=== PATIENT | male | born 1960 | race Caucasian/White ===

== ENCOUNTER 2016-09-15 13:51 | Emergency (ER) | payer BC ==
[2016-09-15] MEDS ORDERED: Ketorolac 60 MG/2 ML SDV IM ONE (13:52)
== END 2016-09-15 14:02 | disposition left against medical advice (07) ==
LOC: MW.ED 13:51
DX: Z53.21 Procedure and treatment not carried out due to patient leaving prior to being seen by health care provider (principal)
CPT/HCPCS: 96372; J1885

== ENCOUNTER 2016-09-15 21:49 | Emergency (ER) | payer BC ==
[2016-09-15] MEDS ORDERED: Alum Hydrox/Mag Hydrox/Simeth 15 ML, Lidocaine 2% 5 ML PO ONE ×2 (21:50)
== END 2016-09-15 22:01 | disposition home or self-care (01) ==
LOC: MW.ED 21:49
DX: Z53.21 Procedure and treatment not carried out due to patient leaving prior to being seen by health care provider (principal)
CPT/HCPCS: A9270 ×2

== ENCOUNTER 2017-06-13 06:58 | Emergency (ER) | payer BC ==
--- NOTE | 2017-06-13 07:48 | EDM.PDOC ---
ED HPI GENERAL MEDICAL PROBLEM - General Chief Complaint: General Stated Complaint: UNK Time Seen by Provider: 06/13/17 07:42 Source of Information: Reports: Patient - History of Present Illness INITIAL COMMENTS - FREE TEXT/NARRATIVE: HISTORY AND PHYSICAL: History of present illness: [Patient presents with new onset pain and paresthesia in left trapezius distribution, pain/tingling/ numbness sensation began last night around midnight increasing in severity throughout the night. No trauma or previous injury is related by patient. No fever nausea vomiting diarrhea constipation chest pain shortness breath dizziness or palpitation no bowel or urine symptoms patient does complain of 3 out of 10 headache no visual change or scotomas Review of systems: As per history of present illness and below otherwise all systems reviewed and negative. Past medical history: As per history of present illness and as reviewed below otherwise noncontributory. Surgical history: As per history of present illness and as reviewed below otherwise noncontributory. Social history: No reported history of drug or alcohol abuse. Family history: As per history of present illness and as reviewed below otherwise noncontributory. Physical exam: HEENT: Atraumatic, normocephalic, pupils reactive, negative for conjunctival pallor or scleral icterus, mucous membranes moist, throat clear, neck supple, nontender, trachea midline. Lungs: Clear to auscultation, breath sounds equal bilaterally, chest nontender. Heart: S1S2, regular, negative for clicks, rubs, or JVD. Abdomen: Soft, nondistended, nontender. Negative for masses or hepatosplenomegaly. Negative for costovertebral tenderness. Pelvis: Stable nontender. Genitourinary: Deferred. Rectal: Deferred. Extremities: Atraumatic, negative for cords or calf pain. Neurovascular unremarkable. Neuro: Awake, alert, oriented. Cranial nerves II through XII unremarkable. Cerebellum unremarkable. Motor unremarkable throughout. Paresthesias left / trapezius distribution Exam nonfocal. Musculoskeletal no muscle atrophy Diagnostics: [Lab as below MRA/MRI brain MRI cervical spine] Therapeutics: [To be determined ] Impression: [Paresthesia] left trapezius distribution Definitive disposition and diagnosis as appropriate pending reevaluation and review of above. - Related Data Allergies Allergy/AdvReac Type Severity Reaction Status Date / Time No Known Allergies Allergy Verified 06/13/17 07:42 Home Meds: Home Meds . [Unable to Verify Home Med List] 12/27/15 [History] Past Medical History Musculoskeletal History: Reports: Other (See Below) Other Musculoskeletal History: shoulder pain Social & Family History - Tobacco Use Smoking Status *Q: Unknown Ever Smoked ED ROS GENERAL - Review of Systems Review Of Systems: ROS reveals no pertinent complaints other than HPI. ED EXAM, GENERAL - Physical Exam Exam: See Below Course - Orders/Labs/Meds Orders: Active Orders 24 hr Category Date Time Status EKG Documentation Completion [RC] STAT Care 06/13/17 07:22 Active Ang Head wo Cont [MR] Stat Exams 06/13/17 07:17 Stop Req Brain w Cont [MR] Stat Exams 06/13/17 07:20 Ordered Cervical Spine Comp wo Cont [MR] Stat Exams 06/13/17 07:20 Ordered Chest 1V Frontal [CR] Stat Exams 06/13/17 07:17 Ordered COMPREHENSIVE METABOLIC PN,CMP [CHEM] Stat Lab 06/13/17 07:30 Received GLYCOSYLATED HEMOGLOBIN,HGBA1C [CHEM] Stat Lab 06/13/17 07:30 Received HOMOCYSTEINE [REF] Stat Lab 06/13/17 07:30 Received LIPID PANEL [CHEM] Stat Lab 06/13/17 07:30 Received PSA SCREEN [CHEM] Stat Lab 06/13/17 07:30 Received Labs: Laboratory Tests 06/13/17 Range/Units 07:30 WBC 5.74 (4.0-11.0) K/uL RBC 5.24 (4.50-5.90) M/uL Hgb 15.1 (13.0-17.0) g/dL Hct 43.4 (38.0-50.0) % MCV 82.8 (80.0-98.0) fL MCH 28.8 (27.0-32.0) pg MCHC 34.8 (31.0-37.0) g/dL RDW Std Deviation 40.3 (28.0-62.0) fl RDW Coeff of Traci 13 (11.0-15.0) % Plt Count 198 (150-400) K/uL MPV 10.50 (7.40-12.00) fL Neut % (Auto) 45.7 L (48.0-80.0) % Lymph % (Auto) 39.7 (16.0-40.0) % [place] % (Auto) 10.6 (0.0-15.0) % Eos % (Auto) 3.3 (0.0-7.0) % Baso % (Auto) 0.7 (0.0-1.5) % Neut # (Auto) 2.6 (1.4-5.7) K/uL Lymph # (Auto) 2.3 (0.6-2.4) K/uL [place] # (Auto) 0.6 (0.0-0.8) K/uL Eos # (Auto) 0.2 (0.0-0.7) K/uL Baso # (Auto) 0.0 (0.0-0.1) K/uL Nucleated RBC % 0.0 /100WBC Nucleated RBCs # 0 K/uL Departure - Departure Time of Disposition: 07:48 Disposition: Home, Self-Care 01 Condition: Fair Clinical Impression: Paresthesia and pain of left extremity - Discharge Information Referrals: Erickson Mustafa MD [Primary Care Provider] - Forms: ED Department Discharge Additional Instructions: The following information is given to patients seen in the emergency department who are being discharged to home. This information is to outline your options for follow-up care. We provide all patients seen in our emergency department with a follow-up referral. The need for follow-up, as well as the timing and circumstances, are variable depending upon the specifics of your emergency department visit. If you don't have a primary care physician on staff, we will provide you with a referral. We always advise you to contact your personal physician following an emergency department visit to inform them of the circumstance of the visit and for follow-up with them and/or the need for any referrals to a consulting specialist. The emergency department will also refer you to a specialist when appropriate. This referral assures that you have the opportunity for follow-up care with a specialist. All of these measure are taken in an effort to provide you with optimal care, which includes your follow-up. Under all circumstances we always encourage you to contact your private physician who remains a resource for coordinating your care. When calling for follow-up care, please make the office aware that this follow-up is from your recent emergency room visit. If for any reason you are refused follow-up, please contact the [facility] emergency department at and asked to speak to the emergency department charge nurse. - My Orders Last 24 Hours: My Active Orders 06/13/17 07:17 Ang Head wo Cont [MR] Stat Chest 1V Frontal [CR] Stat 06/13/17 07:20 Brain w Cont [MR] Stat Cervical Spine Comp wo Cont [MR] Stat 06/13/17 07:22 EKG Documentation Completion [RC] STAT 06/13/17 07:30 COMPREHENSIVE METABOLIC PN,CMP [CHEM] Stat GLYCOSYLATED HEMOGLOBIN,HGBA1C [CHEM] Stat HOMOCYSTEINE [REF] Stat LIPID PANEL [CHEM] Stat PSA SCREEN [CHEM] Stat - Assessment/Plan Last 24 Hours: My Active Orders 06/13/17 07:17 Ang Head wo Cont [MR] Stat Chest 1V Frontal [CR] Stat 06/13/17 07:20 Brain w Cont [MR] Stat Cervical Spine Comp wo Cont [MR] Stat 06/13/17 07:22 EKG Documentation Completion [RC] STAT 06/13/17 07:30 COMPREHENSIVE METABOLIC PN,CMP [CHEM] Stat GLYCOSYLATED HEMOGLOBIN,HGBA1C [CHEM] Stat HOMOCYSTEINE [REF] Stat LIPID PANEL [CHEM] Stat PSA SCREEN [CHEM] Stat
[2017-06-13 08:06] LABS: CHLORIDE,CL 103 mmol/L (98-110); SODIUM,NA 140 mmol/L (136-146)
--- NOTE | 2017-06-13 13:24 | CR ---
EXAMINATION: Portable chest radiograph. HISTORY: Pain. FINDINGS: The trachea is midline. The double contour on the left heart border. And possibly mild prominence of the right hardware is well. No pulmonary infiltrates, effusions or pneumothorax. Osseous structures appear unremarkable. IMPRESSION: 1. No acute cardiopulmonary process. 2. Possible biatrial enlargement, correlate clinically.
[2017-06-13] MEDS ORDERED: Gadobenate Dimeglumine 529 MG/ML 20 ML SDV IVPUSH STA (13:26)
--- NOTE | 2017-06-13 17:07 | MR ---
EXAMINATION: MRI cervical spine with and without contrast HISTORY: Pain COMPARISON: None TECHNIQUE: Multiplanar multisequence imaging obtained of the cervical spine before and following the administration of 16 mL of MultiHance. FINDINGS: The cervical spinal alignment is normal. The vertebral body heights appear maintained. There is no ab normal bone marrow signal noted. Cervical spinal cord signal is normal. Visualized intracranial shaji rtments appear normal. Paravertebral soft tissues are normal. There is no abnormal enhancement. C2-C3: Grossly unremarkable. C3-C4: Small diffuse disc bulge asymmetric to the left without significant spinal canal stenosis. The re moderate left neural foraminal stenosis. C4-C5: Small diffuse disc bulge with mild spinal canal stenosis. Moderate to severe right and moderat e left neural foraminal stenosis, accentuated by uncovertebral hypertrophy. C5-C6: Small diffuse disc bulge with minimal spinal canal stenosis. Mild right neural foraminal steno sis. C6-C7: Small diffuse disc bulge with mild spinal canal stenosis. Mild bilateral, right greater than l eft neural foraminal stenosis. C7-T1: Unremarkable. IMPRESSION: 1. Multilevel degenerative disc disease noted within the cervical spine most prominent from C3 to C6 with individual details above.
--- NOTE | 2017-06-13 17:14 | MR ---
EXAMINATION: MRI of the brain with and without contrast. TECHNIQUE: Multiplanar and multisequence imaging of the brain without and following 16 cc of Multiha nce contrast. HISTORY: Pain. FINDINGS: Cerebral hemispheres and the deep nuclei are without hemorrhage, mass, edema, gliosis, enhancement or atrophy. There is no abnormal diffusion restriction. No extraaxial collections or hemorrhage. The ventricular system is of normal size and configuration without hydrocephalus. The brainstem and c erebellum are without hemorrhage, mass, edema, gliosis, enhancement or atrophy. The carotid and basilar artery flow voids are intact. The otomastoid airspaces are clear. No consultant intern al auditory canal or cerebellopontine angle masses or enhancement. Paranasal sinuses are clear. The pituitary and sella turcica are unremarkable. No meningeal enhancement. The craniocervical junct ion is unremarkable. Calvarium is intact. IMPRESSION: 1. No abnormal intracranial findings.
== END 2017-06-13 14:00 | disposition home or self-care (01) ==
LOC: MW.ED 06:58
DX: R20.2 Paresthesia of skin (principal); M25.512 Pain in left shoulder
CPT/HCPCS: 36415; 70553; 71045; 72156; 80053; 80061; 83036; 83090; 85025; 93005; 99284; A9577; G0103; 99283

== ENCOUNTER 2018-07-02 04:56 | Emergency (ER) | payer SELFPAY ==
[~2018-07-02 04:56] MED LIST: Ketorolac 60 MG/2 ML SDV ONE
[2018-07-02] MEDS ORDERED: Ketorolac 60 MG/2 ML SDV IM ONE (04:58)
== END 2018-07-02 05:30 | disposition left against medical advice (07) ==
LOC: MW.ED 04:56
DX: Z53.21 Procedure and treatment not carried out due to patient leaving prior to being seen by health care provider (principal)
CPT/HCPCS: 99281; J1885